=== PATIENT | female | born 1945 | race Two or more races ===

== ENCOUNTER 2018-03-21 16:01 | Inpatient (IN) | payer SELFPAY ==
[~2018-03-21] VITALS: Ht 154.9 cm; Wt 129.6 kg
[2018-03-21 18:01] LABS: Basophils # (auto) 0.1 uL; Basophils % (auto) 0.5 % (0.0-2.0); Eosinophils # (auto) 0 uL; Eosinophils % (auto) 0.1 % (0.0-7.0); Hematocrit 40.5 % (36.0-46.0); Hemoglobin 13.1 g/dL (12.2-16.2); Lymphocytes # (auto) 1.3 uL; Lymphocytes % (auto) 6.1 % (10.0-50.0); Mean Corpuscular Hemoglobin 28.9 pg (28.0-32.0); Mean Corpuscular Hgb Conc. 32.4 g/dL (32.0-36.0); Mean Corpuscular Volume 89.2 fL (80.0-100.0); Monocytes # (auto) 1.2 uL; Monocytes % (auto) 5.3 % (0.0-12.0); Neutrophils # (auto) 19.2 uL; Platelet Count (auto) 394 10^3/uL (140-450); Red Blood Cells 4.54 10^6/uL (4.0-5.20); Red Cell Distribution Width 14.7 % (11.8-14.3); White Blood Cell 21.8 10^3/uL (4.4-10.8)
[2018-03-21 18:15] LABS: Albumin 3.8 g/dL (3.4-5.0); BUN/Creatinine Ratio 23.3; Bilirubin, Total 0.2 mg/dL (0.2-1.0); Calcium 9.2 mg/dL (8.5-10.1); Potassium 4.4 mmol/L (3.5-5.1); Total Protein 8.3 g/dL (6.4-8.2)
[2018-03-21] MEDS ORDERED: LOPERAMIDE HCL 2 MG CAP PO ONE (22:45)
[2018-03-21] MEDS ORDERED: SODIUM CHLORIDE 0.9% 1,000 ML IV ONE ×2 (23:00)
[2018-03-21] MEDS ORDERED: LABETALOL HCL 5 MG/ML ML 20ML VIAL IV ONE (23:45)
[2018-03-22] MEDS ORDERED: CIPROFLOXACIN 400MG/200ML 200 ML IV ONE (02:45)
[2018-03-22] MEDS ORDERED: ONDANSETRON HCL 4 MG/2 ML VIAL IV PRN (03:45)
[2018-03-22 04:20] LABS: Urine Bacteria NONE SEEN /hpf (None Seen); Urine Blood Negative /uL (Negative); Urine Hyaline Cast FEW /lpf (0 - 2); Urine Specific Gravity 1.018 (1.001-1.035); Urine WBC <1 /hpf (0 - 5)
[2018-03-22] MEDS: SODIUM CHLORIDE 0.9% 1,000 ML IV SCH ×2 (05:15→17:17)
[2018-03-22] MEDS: metroNIDAZOLE 500MG/100ML 100 ML IV SCH ×3 (05:56→21:55)
[2018-03-22] MEDS ORDERED: DEXTROSE (50%) 50ML SYRG IV PRN (06:15)
[2018-03-22] MEDS: ACCU-CHEK COMFORT CURVE STRIP VI SCH ×2 (07:02→12:11)
[2018-03-22 08:30] VITALS: BP 171/84
[2018-03-22 10:13] VITALS: BP 171/84
[2018-03-22] MEDS ORDERED: ENAL2.5T PO (10:28)
[2018-03-22] MEDS ORDERED: NIFE30TA76 PO (10:28)
[2018-03-22] MEDS ORDERED: PNEUMOCOCCAL VACC POLYS 25 MCG/0.5 ML VIAL IM ONE (10:30)
[2018-03-22] MEDS ORDERED: InsuLIN REG 1unit/0.01ml Soln (100units/ml) SC SCH (12:00)
[2018-03-22 13:00] VITALS: BP 170/80
[2018-03-22] MEDS ORDERED: cloNIDine HCL 0.1 MG TAB PO PRN (13:15)
[2018-03-22] MEDS ORDERED: amLODIPine BESYLATE 5 MG TAB PO ONE (13:15)
[2018-03-22] MEDS ORDERED: LEVOFLOXACIN 500MG 100 ML IV ONE (13:15)
[2018-03-22 13:44] LABS: Basophils # (auto) 0.1 uL; Basophils % (auto) 0.9 % (0.0-2.0); Eosinophils # (auto) 0 uL; Eosinophils % (auto) 0.1 % (0.0-7.0); Hematocrit 35.4 % (36.0-46.0); Hemoglobin 11.8 g/dL (12.2-16.2); Lymphocytes # (auto) 1.7 uL; Lymphocytes % (auto) 14.8 % (10.0-50.0); Mean Corpuscular Hemoglobin 28.8 pg (28.0-32.0); Mean Corpuscular Hgb Conc. 33.2 g/dL (32.0-36.0); Mean Corpuscular Volume 86.5 fL (80.0-100.0); Monocytes # (auto) 0.8 uL; Monocytes % (auto) 7.2 % (0.0-12.0); Neutrophils # (auto) 8.7 uL; Platelet Count (auto) 352 10^3/uL (140-450); Red Blood Cells 4.09 10^6/uL (4.0-5.20); Red Cell Distribution Width 14.5 % (11.8-14.3); White Blood Cell 11.3 10^3/uL (4.4-10.8)
[2018-03-22 13:57] LABS: INR 0.97 (0.9-1.15); Partial Thromboplastin Time 26.8 sec (23.78-33.04); Prothrombin Time 10.4 sec (9.27-12.13)
[2018-03-22 14:06] LABS: Calcium 8.4 mg/dL (8.5-10.1); Potassium 4.5 mmol/L (3.5-5.1)
[2018-03-22] MEDS: ACETAMINOPHEN 500 MG TAB PO PRN (16:58)
[2018-03-22 17:22] VITALS: BP 119/55
[2018-03-22 21:47] VITALS: BP 144/66
[2018-03-23 04:00] VITALS: BP 162/78
[2018-03-23] MEDS: metroNIDAZOLE 500MG/100ML 100 ML IV SCH ×3 (05:35→21:10)
[2018-03-23] MEDS: SODIUM CHLORIDE 0.9% 1,000 ML IV SCH ×2 (05:36→15:52)
[2018-03-23 07:51] LABS: Basophils # (auto) 0.1 uL; Basophils % (auto) 1.2 % (0.0-2.0); Eosinophils # (auto) 0 uL; Eosinophils % (auto) 0.5 % (0.0-7.0); Hematocrit 32.3 % (36.0-46.0); Hemoglobin 11.1 g/dL (12.2-16.2); Mean Corpuscular Hemoglobin 29.9 pg (28.0-32.0); Mean Corpuscular Hgb Conc. 34.2 g/dL (32.0-36.0); Mean Corpuscular Volume 87.4 fL (80.0-100.0); Monocytes # (auto) 0.7 uL; Monocytes % (auto) 8.6 % (0.0-12.0); Neutrophils # (auto) 5.8 uL; Neutrophils % (auto) 66.7 % (37.0-80.0); Nucleated Red Blood Cells % 0.1 %; Platelet Count (auto) 333 10^3/uL (140-450); Red Cell Distribution Width 14.2 % (11.8-14.3); White Blood Cell 8.7 10^3/uL (4.4-10.8)
[2018-03-23 08:01] LABS: BUN/Creatinine Ratio 18.7; Calcium 8.6 mg/dL (8.5-10.1); Potassium 4.5 mmol/L (3.5-5.1)
[2018-03-23 08:33] VITALS: BP 141/76
[2018-03-23] MEDS: LEVOFLOXACIN 500MG 100 ML IV SCH (09:41)
[2018-03-23] MEDS: ACETAMINOPHEN 500 MG TAB PO PRN ×3 (09:41→23:25)
[2018-03-23] MEDS: amLODIPine BESYLATE 5 MG TAB PO SCH (09:42)
[2018-03-23] MEDS ORDERED: GASTROGRAFIN 30 ML SOL ONE (11:40)
[2018-03-23] MEDS ORDERED: IOHEXOL 300 MG/ML 100ML BOTTLE IJ ONE (11:40)
[2018-03-23 13:01] VITALS: BP 150/73
[2018-03-23 17:04] VITALS: BP 145/73
[2018-03-23 22:00] VITALS: BP_SYST 126; BP_SYST 160; BP_DIAS 57; BP_DIAS 60
[2018-03-24 05:03] VITALS: BP 161/62
[2018-03-24] MEDS: metroNIDAZOLE 500MG/100ML 100 ML IV SCH ×3 (05:17→21:28)
[2018-03-24 07:04] LABS: Calcium 8.4 mg/dL (8.5-10.1); Potassium 3.8 mmol/L (3.5-5.1)
[2018-03-24 07:08] LABS: BUN/Creatinine Ratio 14.4
[2018-03-24] MEDS: ACETAMINOPHEN 500 MG TAB PO PRN ×3 (08:02→21:30)
[2018-03-24 08:17] VITALS: BP_SYST 115; BP_SYST 162; BP_DIAS 54; BP_DIAS 77
[2018-03-24 08:18] VITALS: BP 162/77
[2018-03-24] MEDS: LEVOFLOXACIN 500MG 100 ML IV SCH (10:05)
[2018-03-24] MEDS: amLODIPine BESYLATE 5 MG TAB PO SCH (10:05)
[2018-03-24 10:29] LABS: Basophils # (auto) 0.1 uL; Basophils % (auto) 1.5 % (0.0-2.0); Eosinophils # (auto) 0.1 uL; Eosinophils % (auto) 0.6 % (0.0-7.0); Hematocrit 33.3 % (36.0-46.0); Hemoglobin 11.2 g/dL (12.2-16.2); Lymphocytes # (auto) 1.8 uL; Lymphocytes % (auto) 19.2 % (10.0-50.0); Mean Corpuscular Hemoglobin 29.2 pg (28.0-32.0); Mean Corpuscular Hgb Conc. 33.6 g/dL (32.0-36.0); Monocytes # (auto) 0.7 uL; Monocytes % (auto) 7.2 % (0.0-12.0); Neutrophils # (auto) 6.7 uL; Neutrophils % (auto) 71.5 % (37.0-80.0); Platelet Count (auto) 345 10^3/uL (140-450); Red Blood Cells 3.83 10^6/uL (4.0-5.20); White Blood Cell 9.4 10^3/uL (4.4-10.8)
[2018-03-24] MEDS ORDERED: LISINOPRIL 5 MG TAB PO ONE (12:30)
[2018-03-24 12:34] VITALS: BP 121/51
[2018-03-24] MEDS ORDERED: GOLYTELY 4L KIT PO ONE (14:15)
[2018-03-24 17:03] VITALS: BP 157/70
[2018-03-24] MEDS: NIFEdipine ER 30 MG TAB PO SCH (21:29)
[2018-03-24] MEDS: ENALAPRIL MALEATE 10 MG TAB PO SCH (21:29)
[2018-03-24 22:00] VITALS: BP_SYST 124; BP_SYST 147; BP_DIAS 68; BP_DIAS 70
[2018-03-24] MEDS ORDERED: LISINOPRIL 20 MG TAB PO SCH (22:00)
[2018-03-25 05:41] VITALS: BP_SYST 124; BP_SYST 152; BP_DIAS 50; BP_DIAS 80
[2018-03-25] MEDS ORDERED: GOLYTELY 4L KIT PO ONE (06:00)
[2018-03-25] MEDS: metroNIDAZOLE 500MG/100ML 100 ML IV SCH ×2 (06:02→15:13)
[2018-03-25 06:16] LABS: Basophils # (auto) 0.2 uL; Basophils % (auto) 2.3 % (0.0-2.0); Eosinophils # (auto) 0.1 uL; Eosinophils % (auto) 1.1 % (0.0-7.0); Hematocrit 36.2 % (36.0-46.0); Hemoglobin 12.3 g/dL (12.2-16.2); Lymphocytes # (auto) 2.2 uL; Lymphocytes % (auto) 23.8 % (10.0-50.0); Mean Corpuscular Hemoglobin 29.1 pg (28.0-32.0); Mean Corpuscular Hgb Conc. 33.9 g/dL (32.0-36.0); Mean Corpuscular Volume 85.9 fL (80.0-100.0); Monocytes # (auto) 0.8 uL; Monocytes % (auto) 8.3 % (0.0-12.0); Neutrophils % (auto) 64.5 % (37.0-80.0); Nucleated Red Blood Cells % 0.1 %; Platelet Count (auto) 372 10^3/uL (140-450); Red Blood Cells 4.22 10^6/uL (4.0-5.20); Red Cell Distribution Width 14.1 % (11.8-14.3); White Blood Cell 9.3 10^3/uL (4.4-10.8)
[2018-03-25 06:40] LABS: Calcium 8.7 mg/dL (8.5-10.1); Potassium 3.4 mmol/L (3.5-5.1)
[2018-03-25 06:43] LABS: BUN/Creatinine Ratio 13.3
[2018-03-25 08:59] VITALS: BP 111/55
[2018-03-25 09:02] VITALS: BP 146/58
[2018-03-25] MEDS ORDERED: FLUMAZENIL 0.1 MG/ML INJ 10ML MDV IV ONE (09:19)
[2018-03-25] MEDS ORDERED: SODIUM CHLORIDE LOCK 10 ML ONE (09:19)
[2018-03-25] MEDS ORDERED: NALOXONE HCL 0.4 MG/ML VIAL ONE (09:19)
[2018-03-25] MEDS ORDERED: diphenhdrAMINE HCL 50 MG/1 ML VL ONE (09:20)
[2018-03-25] MEDS: fentaNYL CITRATE 100 MCG/2 ML VL ONE ×2 (09:34→09:38)
[2018-03-25] MEDS: MIDAZOLAM HCL 5 MG/ML-1ML VIAL ONE ×2 (09:34→09:38)
[2018-03-25] MEDS: LEVOFLOXACIN 500MG 100 ML IV SCH (10:00)
[2018-03-25] MEDS: ENALAPRIL MALEATE 10 MG TAB PO SCH (11:25)
[2018-03-25] MEDS: NIFEdipine ER 30 MG TAB PO SCH (11:25)
[2018-03-25] MEDS: ACETAMINOPHEN 500 MG TAB PO PRN (11:26)
[2018-03-25 12:41] VITALS: BP 143/76
[2018-03-25 13:00] VITALS: BP 143/76
[2018-03-25] MEDS ORDERED: PNEUMOCOCCAL VACC POLYS 25 MCG/0.5 ML VIAL ONE (15:11)
== END 2018-03-25 15:25 | disposition home or self-care (01) | DRG 391 ==
LOC: ER 16:01 → OVERFLOW 16:02 → WEST WING 03-22 08:34
PROVIDERS: ADMIT Nurse Practitioner Family; ATTEND Internal Medicine
PROC: 0DBN8ZX Excision of Sigmoid Colon, Via Natural or Artificial Opening Endoscopic, Diagnostic (ICD-10-PCS; principal; 2018-03-25 08:45)
DX: K57.30 Diverticulosis of large intestine without perforation or abscess without bleeding (principal); N17.0 Acute kidney failure with tubular necrosis; R65.11 Systemic inflammatory response syndrome (SIRS) of non-infectious origin with acute organ dysfunction; I16.9 Hypertensive crisis, unspecified; K52.9 Noninfective gastroenteritis and colitis, unspecified; K57.32 Diverticulitis of large intestine without perforation or abscess without bleeding; E11.22 Type 2 diabetes mellitus with diabetic chronic kidney disease; E86.0 Dehydration; I12.9 Hypertensive chronic kidney disease with stage 1 through stage 4 chronic kidney disease, or unspecified chronic kidney disease; I70.8 Atherosclerosis of other arteries; N18.2 Chronic kidney disease, stage 2 (mild); Z23 Encounter for immunization; Z86.73 Personal history of transient ischemic attack (TIA), and cerebral infarction without residual deficits; Z90.49 Acquired absence of other specified parts of digestive tract
CPT/HCPCS: 36415; 51702; 70450; 71045; 74176; 74177; 80048; 80053; 81001; 82270; 82962; 83036; 83605; 85025; 85610; 85730; 86850; 86900; 86901; 87040; 87086; 87493; 93005; 96361; 96365; 96375; J1956; J2250; J2405; J3490